=== PATIENT | female | born 1960 | race Two or more races ===

== ENCOUNTER → 2017-01-08 | Outpatient (CLI) | payer OTHER ==
[~2017-01-08] MED LIST: GABA100C14; HORMONE MED; IBUP-1542 PO; OXYC-117 PO; PAXIL
== END | disposition home or self-care (01) ==
LOC: HKI 15:02
PROVIDERS: ATTEND Orthopaedic Surgery
DX: M25.561 Pain in right knee (principal); M17.11 Unilateral primary osteoarthritis, right knee
CPT/HCPCS: G0463

== ENCOUNTER → 2017-09-09 | Outpatient (CLI) | END | disposition home or self-care (01) ==

== ENCOUNTER → 2017-09-21 | Outpatient (CLI) | END | disposition home or self-care (01) ==

== ENCOUNTER → 2017-10-12 | Outpatient (CLI) | END | disposition home or self-care (01) ==

== ENCOUNTER → 2017-11-08 | Outpatient (CLI) | END | disposition home or self-care (01) ==

== ENCOUNTER → 2017-12-02 | Outpatient (CLI) | END | disposition home or self-care (01) ==

== ENCOUNTER → 2018-04-07 | Outpatient (CLI) | END | disposition home or self-care (01) ==

== ENCOUNTER → 2018-04-19 | Outpatient (CLI) | END | disposition home or self-care (01) ==

== ENCOUNTER → 2018-05-10 | Outpatient (CLI) | END | disposition home or self-care (01) ==

== ENCOUNTER 2018-09-21 05:19 | Inpatient (IN) | payer OTHER ==
[2018-09-21] VITALS (21 sets, daily range): BP systolic 103–141; BP diastolic 51–73; PULSE 70–86; RESP 15–22; Ht 165.1 cm; Wt 79.6 kg
[~2018-09-21] VITALS: Ht 165.1 cm; Wt 79.6 kg
[2018-09-21] MEDS ORDERED: KNEE PAIN COCKTAIL (CEFUROXIME) INJ SCH ×7 (06:00)
[2018-09-21] MEDS ORDERED: TRANEXAMIC ACID 1,000 MG in NS 100 ML PRE-OP X1 IVPB ONE (06:00)
[2018-09-21] MEDS ORDERED: CEFAZOLIN 2 GM/50 ML (PMX) 50 ML IVPB ONE (06:00)
[2018-09-21] MEDS ORDERED: TRANEXAMIC ACID 1,000 MG in NS 100 ML INTRA-OP X1 IVPB ONE (06:00)
[2018-09-21] MEDS ORDERED: LACTATED RINGER'S 1,000 ML IV* SCH (06:00)
--- NOTE | 2018-09-21 06:37 | HPN ---
Date/Time of Note Date/Time of Note DATE: 09/21/18 TIME: 06:37 Interval H&P Admission Note Pt. seen H&P reviewed: No system changes SIOBHAN STOYR MD Sep 21, 2018 06:37
[2018-09-21] MEDS ORDERED: POLYMYXIN B 500000 UNIT INJ ONE (06:55)
[2018-09-21] MEDS ORDERED: BACITRACIN 50000 UNITS INJ ONE (06:57)
[2018-09-21] MEDS ORDERED: LIDOCAINE 2% (SDV) 5 ML INJ ONE (07:00)
[2018-09-21] MEDS ORDERED: ONDANSETRON 4 MG INJ ONE (07:00)
[2018-09-21] MEDS ORDERED: GABA-526 PO ×2 (07:11)
[2018-09-21] MEDS ORDERED: DULO30CA47 PO (07:12)
[2018-09-21] MEDS ORDERED: AMIT50TA3 PO (07:12)
[2018-09-21] MEDS ORDERED: DULO60CA59 PO (07:12)
--- NOTE | 2018-09-21 07:12 | PREAC ---
Date/Time of Note Date/Time of Note DATE: 09/21/18 TIME: 07:10 Anesthesia Eval and Record Evaluation Time Pre-Procedure Interview DATE: 09/21/18 TIME: 07:10 Age 58 Sex female NPO: 8 hrs Preoperative diagnosis R knee arthritis Planned procedure R TKA Past Medical History Past Medical History: Includes Cardio: HTN Pulm: Smoking Hx (20 pack year hx) Musculoskeletal: Osteoarthritis Psych: Depression, Anxiety Surgery & Anesthesia Issues No known issue Meds Anticoagulation: No Beta Sapphire within 24 hr: No Reason Beta Sapphire not given: Pt. not on B-Sapphire Reported Medications [Paxil] No Conflict Check 06/07/12 Oxycodone Hcl/Acetaminophen (Oxycodone-Apap 5-325 Mg Tab) 1 Tab Tablet, 1 TAB PO Q4 PRN 06/07/12 Ibuprofen* (Ibuprofen*) 600 Mg Tablet, 600 MG PO Q6 PRN 06/07/12 [Hormone Med.] No Conflict Check 12/30/10 Gabapentin* (Gabapentin*) 100 Mg Capsule 12/30/10 Current Medications Ropivacaine/ Morphine Sulfate/ Clonidine/ Epinephrine/ Ketorolac Tromethamine/ Cefuroxime Sodium/ Sodium Chloride INTRA-OP INJ ; Start 09/21/18 at 06:00; Stop 09/21/18 at 10:30 Lactated Ringer's 1,000 ml @ 125 mls/hr Q8H IV* Last administered on 09/21/18at 06:18; Admin Dose 125 MLS/HR; Start 09/21/18 at 06:00; Stop 09/21/18 at 13:59 Meds reviewed: Yes Allergies Coded Allergies: No Known Allergy (Verified , 09/21/18) Allergies Reviewed: Yes Labs/Studies Labs Reviewed: Reviewed by anesthesiologist test: Negative Studies: ECG, CXR Pre-procedure Exam Last vitals Vital Signs Date Temp Pulse Resp B/P (MAP) Pulse Ox O2 O2 Flow FiO2 Time Delivery Rate 09/21/18 97.3 70 18 116/57 100 Room Air 06:37 (76) Airway: Adequate mouth opening, Adequate thyromental dist Mallampati: Mallampati III Teeth: Normal Lung: Normal Heart: Normal ASA Physical Status ASA physical status: 2 Emergency: None Planned Anesthetic General/MAC: LMA Planned Pain Management Single shot nerve block, Parenteral pain med, Other neuraxial med, Local by surgeon Pre-operative Attestations Prior to commencing anesthesia and surgery, the patient was re-evaluated, there was verification of: *The patient's identity *The results of appropriate recent lab work and preoperative vital signs *The above evaluation not changing prior to induction *Anesthetic plan, risk benefits, alternative and complications discussed with patient/family; questions answered; patient/family understands, accepts and wishes to proceed. ANNITA DUENAS MD Sep 21, 2018 07:12
--- NOTE | 2018-09-21 07:18 | PDOCDIS ---
Discharge Instructions DIAGNOSIS Discharge Diagnosis Status post right total knee arthroplasty CONDITION [id number] Patient Condition: [id number] Good HOME CARE INSTRUCTIONS: Zddet2Gl Diet Instructions: [id number] Regular ACTIVITY: [id number] Activity Restrictions: [id number] Slowly Increase Activity Rest between Activity Avoid heavy lifting No Sexual Activity Do not Drive Do not operate Machinery Do not operate Power Tool Avoid Heavy Housework Keep Limb Elevated (2-3 pillows underneath the right foot to the leg remains in full extension) Weight Bearing (Weight-bear as tolerated using front-wheeled walker) [id number] Bathing Restrictions: [id number] Shower (Prineo dressing to remain on until seen postoperatively. Okay to shower with this dressing.) FOLLOW UP/APPOINTMENTS Follow-up Plan Follow-up at postoperative appointment provided to you at your preoperative exam STELLA CLINE PA-C Sep 21, 2018 07:18
[2018-09-21] MEDS ORDERED: FENTAnyl 50 MCG/ML VIAL ONE ×2 (07:23→08:19)
[2018-09-21] MEDS ORDERED: PROPOFOL 20 ML ONE (07:23)
[2018-09-21] MEDS ORDERED: MIDAZOLAM 1 MG/ML 2 ML INJ ONE (07:23)
[2018-09-21] MEDS ORDERED: METOCLOPRAMIDE 10 MG INJ ONE (07:26)
[2018-09-21] MEDS ORDERED: morphine SULFATE/PF (10 MG/10 ML) INJ ONE (07:26)
[2018-09-21] MEDS ORDERED: ROPIVACAINE 0.5 % 30 ML VIAL ONE (07:27)
[2018-09-21] MEDS ORDERED: ONDANSETRON 4 MG INJ IV PRN (07:30)
[2018-09-21] MEDS ORDERED: MAGNESIUM HYDROXIDE 30ML CUP PO PRN (07:30)
[2018-09-21] MEDS ORDERED: DOCUSATE SODIUM 100 MG CAP PO ONE (07:30)
[2018-09-21] MEDS ORDERED: MEPERIDINE 25 MG INJ IV PRN (07:30)
[2018-09-21] MEDS ORDERED: HALOPERIDOL 5 MG INJ IV PRN (07:30)
[2018-09-21] MEDS ORDERED: LORAZEPAM 2 MG INJ IV PRN (07:30)
[2018-09-21] MEDS ORDERED: NACL 0.9% 3 ML SYG IV SCH (07:30)
[2018-09-21] MEDS ORDERED: DIPHENHYDRAMINE 50 MG INJ IV PRN ×2 (07:30)
[2018-09-21] MEDS ORDERED: LABETALOL HCL 20MG INJ IV PRN (07:30)
[2018-09-21] MEDS ORDERED: FENTAnyl 50 MCG/ML VIAL IV PRN ×2 (07:30)
[2018-09-21] MEDS ORDERED: ASPIRIN 81 MG TAB PO ONE (07:30)
[2018-09-21] MEDS ORDERED: NALOXONE (0.4 MG/ML) INJ IV PRN (07:30)
[2018-09-21] MEDS ORDERED: BETHANECHOL 25 MG TAB PO PRN (07:30)
[2018-09-21] MEDS ORDERED: LEVALBUTEROL (NEB) 1.25 MG/0.5 ML AMP HHN PRN (07:30)
[2018-09-21] MEDS ORDERED: hydrALAzine 20 MG INJ IV PRN (07:30)
[2018-09-21] MEDS ORDERED: IPRATROPIUM (NEB) 0.5 MG/2.5 ML AMP HHN PRN (07:30)
[2018-09-21] MEDS ORDERED: MIDAZOLAM 1 MG/ML 2 ML INJ IV PRN (07:30)
[2018-09-21] MEDS ORDERED: NA PHOSPHATE/BIPHOS 133 ML ENEMA PR PRN (07:30)
[2018-09-21] MEDS ORDERED: HYDROmorphONE 1 MG/5 ML IV SYRINGE IV PRN ×2 (07:30)
[2018-09-21] MEDS ORDERED: BISACODYL 10 MG SUPP PR PRN (07:30)
[2018-09-21] MEDS ORDERED: oxyCODONE 5 MG TAB PO PRN (07:30)
[2018-09-21] MEDS ORDERED: SENNA/DOCUSATE NA (8.6MG/50MG) TAB PO PRN (07:30)
[2018-09-21] MEDS ORDERED: EPINEPHrine 1 MG INJ ONE (07:32)
[2018-09-21] MEDS ORDERED: HYDROmorphONE 2 MG/ML SYG ONE (08:17)
[2018-09-21] MEDS ORDERED: GABAPENTIN 300 MG CAP PO SCH (09:00)
[2018-09-21] MEDS ORDERED: DEXAMETHASONE 4 MG/ML 5 ML INJ ONE (09:09)
--- NOTE | 2018-09-21 09:40 | SIPON ---
Date/Time of Note Date/Time of Note DATE: 09/21/18 TIME: 09:37 Operative Report Preoperative Diagnosis Right Knee Osteoarthritis Postoperative Diagnosis Same Operation/Procedure Performed Right Total Knee Arthroplasty Surgeon Josy Story MD phlebotomy lab assistant Gregory Hunt Second assist: STELLA CLINE PA-C Anesthesia: general Estimated blood loss: 250 - 300 ml's Transfusion Required none Specimen bone Grafts/Implants none Complications none JOSY STORY MD Sep 21, 2018 09:40
[2018-09-21] MEDS: HYDROmorphONE 1 MG/5 ML IV SYRINGE IV PRN ×2 (09:51→09:57)
--- NOTE | 2018-09-21 09:53 | OPR ---
Date/Time of Note Date/Time of Note DATE: 09/21/18 TIME: 09:40 Operative Report Free Text/Dictation DATE OF OPERATION: September 21, 2018 SURGEON: Siobhan Story MD APARTMENT MAINTENANCE SUPERVISOR: Gregory GARCIA APARTMENT MAINTENANCE SUPERVISOR: Aldair Hinkle PREOPERATIVE DIAGNOSIS: Right knee osteoarthritis. POSTOPERATIVE DIAGNOSIS: Right knee osteoarthritis. PROCEDURES PERFORMED: Right total knee arthroplasty, CPT code 17032. ANESTHESIOLOGIST: Dr. Tinoco ANESTHESIA: General ESTIMATED BLOOD LOSS: 300 mL. COMPLICATIONS: None. SPECIMENS: Resected bone. DISPOSITION: PACU in stable condition. TOURNIQUET TIME: 43 minutes at 250 mmHg. IMPLANT USED: Fragoso [employer] Nephew size 3 Li tibial baseplate, size 4 standard posterior stabilized Oxinium femur, size 9 high flexion polyethylene, size 35 mm patella. INDICATION FOR PROCEDURE: This is an 58-year-old female with end-stage osteoarthritis of the right knee who had failed nonoperative management. Risks, benefits, alternatives of surgical intervention were discussed with the patient and informed consent was obtained. The risks of surgery include but are not limited to infection, deep venous thrombosis, pulmonary embolism, damage to nerves and blood vessels, numbness around incision site, stiffness of knee, need for total knee manipulation under anesthesia, need for blood transfuion, heart attack, stroke, risks associated with anesthesia, implant loosening, wear of prosthesis, need for revision surgery, and . DESCRIPTION OF PROCEDURE: The patient was met in the preoperative suite. The correct operative site was confirmed and marked. The patient was then brought into operating room. After induction of anesthesia, the patient was placed in the supine position on the operating room table. A tourniquet was applied to right upper thigh. The right lower extremity was prepped and draped in the usual sterile fashion. Before starting, a timeout was taken to identify the correct operative site and confirm preoperative antibiotics consisting of 1 g of IV Ancef, along with 1 g of tranexamic acid were administered. At this point, the right leg was elevated and exsanguinated with an Esmarch and tourniquet was then insufflated for the above noted time. A midline incision was made and median parapatellar arthrotomy was then completed. The lateral patellar reti nacular ligaments were released. A sleeve of tissue was released from the medial proximal tibia. The cruciate ligaments and the menisci were then excised. At this point, the custom distal femur cutting block was then pinned and 9.5 mm was resected from the distal femur. The 4-in-1 cutting block, size 4 was then placed. An rosie wing was used to confirm that notching of the anterior cortex of the femur would not occur. The anterior and posterior condylar cuts were completed followed by the anterior and posterior chamfer cuts. The osteophytes were then removed with a rongeur. At this point, the tibia was subluxed anteriorly. Appropriate retractors were placed. The custom tibial cutting block was then pinned. The drop was used to ensure the correct alignment. Approximately 6 mm was resected off the lateral tibial plateau and 9 mm off the medial tibial plateau. Osteophytes were then removed. At this point, the flexion extension gaps were checked with a 9 mm gap fish checker and noted to be equal. Next, trial 4 standard femur was then pinned and the box cut was then completed. The tibia was then subluxed anteriorly and measured to size 3. The tibial tray was then pinned and a keel was then punched. The trial components were placed with a 9 mm polyethylene and noted to have full extension and greater than 120 degrees of flexion. The patella was then subluxed laterally and sized to 21 mm. Approximately, 7 mm was resected leaving 14 mm of bone. The patellar was sized to 35 mm. The button was placed and noted to have excellent patellar tracking. The trial components were removed. All bony surfaces were pulse lavaged and dried. The appropriate size components were then cemented and the knee was held in extension with a 9 mm trial polyethylene until the cement cured. Once the cement had cured, the trial polyethylene was removed and the appropriate size polyethylene was then placed. The tranexamic acid was redosed. The cocktail was then injected. The extensor mechanism was closed using #1 Stratafix and the subcutaneous tissue with 2-0 Vicryl and the skin with 4-0 Monocryl. Steri-Strips were applied along with a sterile dressing. There were no complications. The patient was transferred to PACU in stable condition. POSTOPERATIVE CARE: The patient will be weightbearing as tolerated. The patient will work with physical therapy, and will receive two additional doses of IV antibiotics along with aspirin 81 mg p.o. b.i.d. for 6 weeks. Upon discharge, patient will follow up in my office within 2 weeks postoperatively. SIOBHAN STORY MD 9, 2019 09:52
--- NOTE | 2018-09-21 09:54 | PAC ---
Date/Time of Note Date/Time of Note DATE: 09/21/18 TIME: 09:54 Post-Anesthesia Notes Post-Anesthesia Note Last documented vital signs Vital Signs Date Temp Pulse Resp B/P (MAP) Pulse Ox O2 O2 Flow FiO2 Time Delivery Rate 09/21/18 97.3 70 18 116/57 100 Room Air 06:37 (76) Activity: WNL Respiratory function: WNL Cardiovascular function: WNL Mental status: Baseline Pain reasonably controlled: Yes Hydration appropriate: Yes Nausea/Vomiting absent: Yes ANNITA DUENAS MD Sep 21, 2018 09:54
[2018-09-21] MEDS: CEFAZOLIN 2 GM/50 ML (PMX) 50 ML IVPB SCH ×3 (11:05→22:56)
[2018-09-21] MEDS: SOD CHLORIDE 0.9% 1,000 ML IV SCH ×3 (11:13→22:56)
--- NOTE | 2018-09-21 11:17 | CONS ---
Date/Time of Note Date/Time of Note DATE: 09/21/18 TIME: 11:17 Assessment/Plan Assessment/Plan Hospital Course 58-year-old female with comorbidities including chronic back pain, right knee osteoarthritis, depression, and nicotine use who underwent a right total knee arthroplasty for right knee osteoarthritis. The patient is being admitted to inpatient setting for further treatment and evaluation. 1. Right knee osteoarthritis. -Status post right total knee arthroplasty on 09/21/2018. -Weight bearing of the right lower extremity as per orthopedic surgery. -Continue pain control. -Anti-coagulation as per orthopedic surgery. -Physical therapy and occupational therapy as per orthopedic surgeon. 2. Nicotine use. -Start the patient on nicotine patch. 3. Depression. -Continue mood stabilizers. 4. Chronic pain. -Continue gabapentin. Diet: Regular diet. CODE STATUS: Full code. Anticoagulation: As per orthopedic surgery. Additional diagnostic and therapeutic orders will be added as clinically indicated. We will continue to follow the patient along with you Thank you Dr. Ross for allowing us to participate in this patient's care. The patient was seen in collaboration with Dr. Lundberg. Consultation Date/Type/Reason Admit Date/Time Sep 21, 2018 at 05:19 Date of Consultation: Sep 21, 2018 Type of Consult Medical. Reason for Consultation Medical management. Requesting Provider: SIOBHAN STORY MD Hx of Present Illness This is a 58-year-old female with comorbidities including chronic low back pain, right knee osteoarthritis, nicotine use, and depression who was brought to in electively for a right total knee arthroplasty for right knee osteoarthritis. The patient underwent the surgery well. The patient is being admitted to inpatient setting for further monitoring. Hospitalist consult was obtained for medical management. Constitutional: no complaints Eyes: no complaints ENT: no complaints Respiratory: no complaints Cardiovascular: no complaints Gastrointestinal: no complaints Genitourinary: no complaints Musculoskeletal: back pain, bone/joint pain Skin: no complaints Neurologic: no complaints Endocrine: no complaints Lymphatic: no complaints Psychological: depression Immunologic: no complaints Past Medical History 1. Chronic pain. 2. Depression. Medications Current Medications Lactated Ringer's 1,000 ml @ 125 mls/hr Q8H IV* Last administered on 09/21/18at 06:18; Admin Dose 125 MLS/HR; Start 09/21/18 at 06:00; Stop 09/21/18 at 13:59 Hydromorphone HCl (Dilaudid) 0.2 mg PACU PRN IV MILD PAIN LEVEL 1-3 Last administered on 09/21/18at 10:25; Admin Dose 0.2 MG; Start 09/21/18 at 07:30; Stop 09/21/18 at 18:00 Hydromorphone HCl (Dilaudid) 0.4 mg PACU PRN IV MODERATE PAIN LEVEL 4-6 Last administered on 09/21/18at 09:57; Admin Dose 0.4 MG; Start 09/21/18 at 07:30; Stop 09/21/18 at 18:00 Hydromorphone HCl (Dilaudid) 0.6 mg PACU PRN IV SEVERE PAIN LEVEL 7-10; Start 09/21/18 at 07:30; Stop 09/21/18 at 18:00 Fentanyl (Sublimaze) 25 mcg PACU ORDER PRN IV MILD PAIN LEVEL 1-3 Last administered on 09/21/18at 10:32; Admin Dose 25 MCG; Start 09/21/18 at 07:30; Stop 09/21/18 at 18:00 Fentanyl (Sublimaze) 50 mcg PACU ORDER PRN IV MODERATE PAIN LEVEL 4-6; Start 09/21/18 at 07:30; Stop 09/21/18 at 18:00 Ondansetron HCl (Zofran Inj) 4 mg PACU ORDER PRN IV NAUSEA AND/OR VOMITING Last administered on 09/21/18at 09:56; Admin Dose 4 MG; Start 09/21/18 at 07:30; Stop 09/21/18 at 18:00 Haloperidol (Haldol) 1 mg PACU ORDER PRN IV NAUSEA AND/OR VOMITING; Start 09/21/18 at 07:30; Stop 09/21/18 at 18:00 Labetalol HCl (Labetalol) 5 mg PACU ORDER PRN IV ELEVATED BLOOD PRESSURE; Start 09/21/18 at 07:30; Stop 09/21/18 at 18:00 Hydralazine HCl (Apresoline) 5 mg PACU ORDER PRN IV ELEVATED BLOOD PRESSURE; Start 09/21/18 at 07:30; Stop 09/21/18 at 18:00 Levalbuterol (Xopenex Neb) 1.25 mg PACU ORDER PRN HHN WHEEZING; Start 09/21/18 at 07:30; Stop 09/21/18 at 18:00 Ipratropium [place] (Atrovent 0.02% (Neb)) 0.5 mg PACU ORDER PRN HHN WHEEZING; Start 09/21/18 at 07:30; Stop 09/21/18 at 18:00 Meperidine HCl (Demerol) 25 mg PACU ORDER PRN IV POST OPERATIVE SHIVERING Last administered on 09/21/18at 09:51; Admin Dose 25 MG; Start 09/21/18 at 07:30; Stop 09/21/18 at 18:00 Diphenhydramine HCl (Benadryl) 25 mg PACU ORDER PRN IV PRURITUS Last administered on 09/21/18at 10:25; Admin Dose 25 MG; Start 09/21/18 at 07:30; Stop 09/21/18 at 18:00 Lorazepam (Ativan) 1 mg PACU ORDER PRN IV ANXIETY; Start 09/21/18 at 07:30; Stop 09/21/18 at 18:00 Midazolam HCl (Versed) 0.5 mg PACU ORDER PRN IV ANXIETY; Start 09/21/18 at 07:30; Stop 09/21/18 at 18:00 Sodium Chloride 1,000 ml @ 80 mls/hr [id number] IV ; Start 09/21/18 at 07:18 IV Flush (NS 3 ml) 3 ml PER PROTOCOL IV ; Start 09/21/18 at 07:30 Oxycodone HCl (Roxicodone) 15 mg Q4H PRN PO PAIN; Start 09/21/18 at 07:30 Oxycodone HCl (Roxicodone) 10 mg Q4H PRN PO PAIN; Start 09/21/18 at 07:30 Oxycodone HCl (Roxicodone) 5 mg Q4H PRN PO PAIN; Start 09/21/18 at 07:30 Ondansetron HCl (Zofran Inj) 4 mg Q4H PRN IV NAUSEA AND/OR VOMITING; Start 09/22/18 at 07:30 Cefazolin Sodium/ Dextrose 50 ml @ 100 mls/hr Q8H IVPB ; Start 09/21/18 at 07:30; Stop 09/21/18 at 23:59 Celecoxib (Celebrex) 100 mg BID PO ; Start 09/22/18 at 09:00 Gabapentin (Neurontin) 300 mg TID PO Last administered on 09/21/18at 10:47; Admin Dose 300 MG; Start 09/21/18 at 09:00 Pantoprazole (Protonix Tab) 40 mg DAILY@06 PO ; Start 09/23/18 at 06:00 Docusate Sodium (Colace) 200 mg BID PO ; Start 09/22/18 at 09:00; Stop 09/25/18 at 08:59 Simethicone (Mylicon) 80 mg TID PRN PO DISTENSION/GAS/BLOATING; Start 09/21/18 at 07:30 Senna/Docusate Sodium (Senokot-S) 2 tab BID PRN PO CONSTIPATION; Start 09/21/18 at 07:30 Magnesium Hydroxide (Milk Of Mag) 30 ml HS PRN PO CONSTIPATION; Start 09/21/18 at 07:30 Bisacodyl (Dulcolax Supp) 10 mg DAILY PRN NE CONSTIPATION; Start 09/21/18 at 07:30 Sodium Biphosphate/ Sodium Phosphate (Fleet Enema) 133 ml DAILY PRN NE CONSTIPATION; Start 09/21/18 at 07:30 Diphenhydramine HCl (Benadryl) 25 mg Q4H PRN IV ITCHING; Start 09/21/18 at 07:30 Naloxone HCl (Narcan) 0.2 mg Q2M PRN IV DECREASED REPIRATORY RATE; Start 09/21/18 at 07:30 Bethanechol Chloride (Urecholine) 25 mg URINARY CATH D/C PRN PO UNABLE TO VOID; Start 09/21/18 at 07:30 Aspirin (Halfprin) 81 mg BID PO ; Start 09/22/18 at 09:00 Allergies: Coded Allergies: No Known Allergy (Verified , 09/21/18) Past Surgical History 1. Cholecystectomy. 2. Back surgery. 3. Vaginal surgery. Social History The patient lives at home with family. Alcohol Use: none Smoking Status: Current every day smoker Drug Use: none Exam/Review of Systems Vital Signs Vitals Vital Signs Date Temp Pulse Resp B/P (MAP) Pulse Ox O2 O2 Flow FiO2 Time Delivery Rate 09/21/18 75 21 128/67 100 Nasal 1.0 10:56 (87) Cannula 09/21/18 99.1 09:54 Exam General: Adequately build 58 year-old female lying in bed in no apparent distress. HEENT: Normocephalic, atraumatic. Eyes: Anicteric sclerae, conjunctivae clear. ENT: Nasal septum midline, oral mucosa moist. Neck supple, no JVD noticed. Respiratory: Bilaterally clear breath sounds. No use of accessory muscles of respiration. No adventitious breath sounds. Cardiovascular: S1, S2 heard. Regular rate and rhythm. Abdomen: Soft, nontender, and nondistended. Bowel sounds positive in all 4 quadrants. Genitourinary: Deferred. Extremities: No cyanosis, no clubbing, no edema. Right knee surgical dressing. Neurologic: Cranial nerves II through XII grossly intact. The patient is awake, alert, and oriented. Skin: Normal skin turgor. No skin rashes. LYNSEY CABRALES NP Sep 21, 2018 11:17
[2018-09-21] MEDS: oxyCODONE 5 MG TAB PO PRN ×3 (13:49→21:35)
[2018-09-21] MEDS: NICOTINE (7 MG/24 HR) PATCH TRANSDERM SCH (16:07)
[2018-09-21] MEDS ORDERED: HYDROmorphONE 1 MG/ML SYG IV ONE (18:30)
[2018-09-21] MEDS: GABAPENTIN 400 MG CAP PO SCH (20:05)
[2018-09-21] MEDS: DULOXETINE 30 MG CAP DR PO SCH (20:05)
[2018-09-21] MEDS: AMITRIPTYLINE 50 MG TAB PO SCH (20:05)
[2018-09-21] MEDS ORDERED: HYDROmorphONE 0.5 MG/0.5 ML SYG IV PRN (22:00)
[2018-09-21] MEDS: HYDROmorphONE 1 MG/ML SYG IV PRN (23:37)
[2018-09-22] VITALS: BP 116/55; PULSE 82; RESP 18
[2018-09-22] MEDS: oxyCODONE 5 MG TAB PO PRN ×6 (01:19→23:28)
[2018-09-22] MEDS ORDERED: HYDROmorphONE 0.5 MG/0.5 ML SYG IV PRN (04:00)
[2018-09-22] MEDS: HYDROmorphONE 1 MG/ML SYG IV PRN ×2 (05:36→14:19)
[2018-09-22] MEDS ORDERED: ONDANSETRON 4 MG INJ IV PRN (07:30)
[2018-09-22 07:52] VITALS: BP 133/62; PULSE 84; RESP 18
[2018-09-22] MEDS ORDERED: HYDROmorphONE 1 MG/ML SYG IV STA (08:24)
[2018-09-22] MEDS ORDERED: HYDROmorphONE 2 MG/ML SYG IV PRN (08:30)
--- NOTE | 2018-09-22 08:37 | PN ---
Date/Time of Note Date/Time of Note DATE: 09/22/18 TIME: 08:35 Assessment/Plan VTE Prophylaxis VTE Prophylaxis Intervention: ambulation, SCD's, other (Aspirin 81 mg) Lines/Catheters IV Catheter Type (from Nrsg): Peripheral IV Assessment/Plan Assessment/Plan -Pain Meds as needed. Dilaudid 1 mg IV every 4 okay today. Discussed directly with pharmacist as well. -Dressing is clean and intact. -OOB with PT -ASA/SCDs for DVT Prophylaxis -Continue monitoring with Internal Medicine -Patient Stable Subjective 24 Hr Interval Summary 58-year-old female postop day 1 status post right total knee arthroplasty. Patient has been experiencing severe pain status post surgery since yesterday evening. Oxycodone 15 mg not effective. Was given 1 mg Dilaudid which was mildly effective. The patient in acute distress at the current time secondary to severe pain to the operative knee. Denies any chest pain/tightness complai nts. Patient's only complaint is severe pain to the knee. Pain Control: severe Exam/Review of Systems Vital Signs Vitals Vital Signs Date Temp Pulse Resp B/P (MAP) Pulse Ox O2 O2 Flow FiO2 Time Delivery Rate 09/22/18 99.0 84 18 133/62 97 Nasal 2.0 07:52 (85) Cannula Intake and Output 09/21/18 09/21/18 09/22/18 1515:00 23:00 07:00 IntakeIntake Total 1720 ml 870 ml 530 ml OutputOutput Total 450 ml BalanceBalance 1270 ml 870 ml 530 ml Exam Free Text/Dictation -No complications with dressing intact. -4/5 Tibialis Anterior, EHL Gastrocnemius/Soleus and Peroneals -Normal Sensation -Palpable DP/PT, Capillary Refill <2 secs -No Distal Edema -Negative Edyta Sign/No calf pain -Toes Freely Movable Constitutional: alert, oriented, well developed Results Result Diagram: 09/22/18 04309/22/18 043 STELLA CLINE PA-C Sep 22, 2018 08:37
--- NOTE | 2018-09-22 08:53 | CONS ---
Date/Time of Note Date/Time of Note DATE: 09/22/18 TIME: 08:51 Assessment/Plan Assessment/Plan Hospital Course SUBJECTIVE: Patient continues to complain of significant right knee pain. OBJECTIVE: Physical Exam General: Adequately build 58 year-old female lying in bed in no apparent distress. HEENT: Normocephalic, atraumatic. Eyes: Anicteric sclerae, conjunctivae clear. ENT: Nasal septum midline, oral mucosa moist. Neck supple, no JVD noticed. Respiratory: Bilaterally clear breath sounds. No use of accessory muscles of respiration. No adventitious breath sounds. Cardiovascular: S1, S2 heard. Regular rate and rhythm. Abdomen: Soft, nontender, and nondistended. Bowel sounds positive in all 4 quadrants. Genitourinary: Deferred. Extremities: No cyanosis, no clubbing, no edema. Right knee surgical dressing. Neurologic: Cranial nerves II through XII grossly intact. The patient is awake, alert, and oriented. Skin: Normal skin turgor. No skin rashes. Labs & Vitals per chart ASSESSMENT & PLAN 58-year-old female with comorbidities including chronic back pain, right knee osteoarthritis, depression, and nicotine use who underwent a right total knee arthroplasty for right knee osteoarthritis. The patient was admitted to inpatient setting for further treatment and evaluation. 1. Right knee osteoarthritis. -Status post right total knee arthroplasty on 09/21/2018. -Weight bearing of the right lower extremity as per orthopedic surgery. -Continue pain control. -Anti-coagulation as per orthopedic surgery. -Physical therapy and occupational therapy as per orthopedic surgeon. 2. Nicotine use. -Continue the patient on nicotine patch. 3. Depression. -Continue mood stabilizers. 4. Chronic pain. -Continue gabapentin. Diet: Regular diet. CODE STATUS: Full code. Anticoagulation: As per orthopedic surgery. Additional diagnostic and therapeutic orders will be added as clinically indicated. We will continue to follow the patient along with you Thank you Dr. Ross for allowing us to participate in this patient's care. The patient was seen in collaboration with Dr. Lundberg. Result Diagram: 09/22/18 0431 09/22/18 0431 Results 24hrs Laboratory Tests Test 09/22/18 04:31 09/22/18 07:12 White Blood Count 8.9 Red Blood Count 4.04 L Hemoglobin 11.3 L Hematocrit 34.4 L Mean Corpuscular Volume 85.1 Mean Corpuscular Hemoglobin 28.0 L Mean Corpuscular Hemoglobin Concent 32.8 Red Cell Distribution Width 13.5 Platelet Count 188 Mean Platelet Volume 10.6 H Immature Granulocytes % 0.300 Neutrophils % 62.8 Lymphocytes % 23.7 Monocytes % 11.8 H Eosinophils % 1.1 Basophils % 0.3 Nucleated Red Blood Cells % 0.0 Immature Granulocytes # 0.030 Neutrophils # 5.6 Lymphocytes # 2.1 Monocytes # 1.1 H Eosinophils # 0.1 Basophils # 0.0 Nucleated Red Blood Cells # 0.0 Sodium Level 139 Potassium Level 3.9 Chloride Level 105 Carbon Dioxide Level 28 Anion Gap 6 Blood Urea Nitrogen 8 Creatinine 0.63 Est Glomerular Filtrat Rate mL/min > 60 Glucose Level 106 Calcium Level 8.2 L Lab Scanned Report REFERENCE LAB Consultation Date/Type/Reason Admit Date/Time Sep 21, 2018 at 05:19 Initial Consult Date 09/21/18 Type of Consult Medical. Reason for Consultation Medical management. Requesting Provider: SIOBHAN STORY MD Exam/Review of Systems Vital Signs Vitals Vital Signs Date Temp Pulse Resp B/P (MAP) Pulse Ox O2 O2 Flow FiO2 Time Delivery Rate 09/22/18 99.0 84 18 133/62 97 Nasal 2.0 07:52 (85) Cannula Intake and Output 09/21/18 09/21/18 09/22/18 1515:00 23:00 07:00 IntakeIntake Total 1720 ml 870 ml 530 ml OutputOutput Total 450 ml BalanceBalance 1270 ml 870 ml 530 ml Medications Medications Current Medications Sodium Chloride 1,000 ml @ 80 mls/hr [id number] IV Last administered on 09/21/18at 22:56; Admin Dose 80 MLS/HR; Start 09/21/18 at 07:18 IV Flush (NS 3 ml) 3 ml PER PROTOCOL IV ; Start 09/21/18 at 07:30 Oxycodone HCl (Roxicodone) 15 mg Q4H PRN PO PAIN Last administered on 09/22/18at 07:27; Admin Dose 15 MG; Start 09/21/18 at 07:30 Oxycodone HCl (Roxicodone) 10 mg Q4H PRN PO PAIN Last administered on 09/21/18at 13:49; Admin Dose 10 MG; Start 09/21/18 at 07:30 Oxycodone HCl (Roxicodone) 5 mg Q4H PRN PO PAIN; Start 09/21/18 at 07:30 Ondansetron HCl (Zofran Inj) 4 mg Q4H PRN IV NAUSEA AND/OR VOMITING; Start 09/22/18 at 07:30 Celecoxib (Celebrex) 100 mg BID PO ; Start 09/22/18 at 09:00 Pantoprazole (Protonix Tab) 40 mg DAILY@06 PO ; Start 09/23/18 at 06:00 Docusate Sodium (Colace) 200 mg BID PO ; Start 09/22/18 at 09:00; Stop 09/25/18 at 08:59 Simethicone (Mylicon) 80 mg TID PRN PO DISTENSION/GAS/BLOATING; Start 09/21/18 at 07:30 Senna/Docusate Sodium (Senokot-S) 2 tab BID PRN PO CONSTIPATION; Start 09/21/18 at 07:30 Magnesium Hydroxide (Milk Of Mag) 30 ml HS PRN PO CONSTIPATION; Start 09/21/18 at 07:30 Bisacodyl (Dulcolax Supp) 10 mg DAILY PRN [place] CONSTIPATION; Start 09/21/18 at 07:30 Sodium Biphosphate/ Sodium Phosphate (Fleet Enema) 133 ml DAILY PRN [place] CONS TIPATION; Start 09/21/18 at 07:30 Diphenhydramine HCl (Benadryl) 25 mg Q4H PRN IV ITCHING Last administered on 09/22/18at 02:23; Admin Dose 25 MG; Start 09/21/18 at 07:30 Naloxone HCl (Narcan) 0.2 mg Q2M PRN IV DECREASED REPIRATORY RATE; Start 09/21/18 at 07:30 Bethanechol Chloride (Urecholine) 25 mg URINARY CATH D/C PRN PO UNABLE TO VOID; Start 09/21/18 at 07:30 Aspirin (Halfprin) 81 mg BID PO ; Start 09/22/18 at 09:00 Amitriptyline HCl (Elavil) 50 mg QHS PO Last administered on 09/21/18at 20:05; Ad min Dose 50 MG; Start 09/21/18 at 21:00 Duloxetine HCl (Cymbalta) 30 mg QHS PO Last administered on 09/21/18at 20:05; Admin Dose 30 MG; Start 09/21/18 at 21:00 Duloxetine HCl (Cymbalta) 60 mg QAM PO ; Start 09/22/18 at 09:00 Gabapentin (Neurontin) 1,200 mg QPM PO Last administered on 09/21/18at 20:05; A dmin Dose 1,200 MG; Start 09/21/18 at 21:00 Gabapentin (Neurontin) 600 mg QAM PO ; Start 09/22/18 at 09:00 Nicotine (Nicoderm 7 Mg/ 24 Hr) 1 patch DAILY TRANSDERM Last administered on 09/21/18at 16:07; Admin Dose 1 PATCH; Start 09/21/18 at 15:00 Hydromorphone HCl (Dilaudid) 1 mg Q6H PRN IV BREAKTHROUGH PAIN; Start 09/22/18 at 08:30 LYNSEY CABRALES NP Sep 22, 2018 08:53
[2018-09-22] MEDS: ASPIRIN (EC) 81 MG TAB PO SCH ×2 (09:05→20:38)
[2018-09-22] MEDS: CELECOXIB 100 MG CAP PO SCH ×2 (09:05→20:38)
[2018-09-22] MEDS: GABAPENTIN 300 MG CAP PO SCH (09:05)
[2018-09-22] MEDS: DULOXETINE 30 MG CAP DR PO SCH ×2 (09:06→20:38)
[2018-09-22] MEDS: NICOTINE (7 MG/24 HR) PATCH TRANSDERM SCH (09:06)
[2018-09-22] MEDS: DOCUSATE SODIUM 100 MG CAP PO SCH ×2 (09:06→20:38)
[2018-09-22 15:58] VITALS: BP 115/55; PULSE 92; RESP 18
[2018-09-22] MEDS: KETOROLAC 30 MG INJ IV PRN (17:20)
[2018-09-22] MEDS: GABAPENTIN 400 MG CAP PO SCH (20:38)
[2018-09-22] MEDS: AMITRIPTYLINE 50 MG TAB PO SCH (20:38)
[2018-09-22 20:40] VITALS: BP 99/56; PULSE 89; RESP 18
[2018-09-23] MEDS: PANTOPRAZOLE (EC) 40 MG TAB PO SCH (05:27)
[2018-09-23] MEDS: oxyCODONE 5 MG TAB PO PRN ×3 (05:34→19:26)
[2018-09-23] MEDS: HYDROmorphONE 1 MG/ML SYG IV PRN (07:26)
--- NOTE | 2018-09-23 08:07 | PN ---
Date/Time of Note Date/Time of Note DATE: 09/23/18 TIME: 08:06 Assessment/Plan VTE Prophylaxis VTE Prophylaxis Intervention: ambulation, SCD's, other (Aspirin 81 mg) Lines/Catheters IV Catheter Type (from Nrsg): Saline Lock Assessment/Plan Assessment/Plan -Pain Meds as needed -Dressing is clean and intact. -OOB with PT -ASA/SCDs for DVT Prophylaxis -Continue monitoring with Internal Medicine -Patient Stable -Acute rehab consult warranted given minimal functionality although low performance highly due to pain complaints Subjective 24 Hr Interval Summary 58-year-old female postop day 2 status post right total knee arthroplasty. Pain has improved from yesterday but continues to be moderate to severe. Patient had physical therapy with minimal activity secondary to pain. Denies any fever, chills or malaise. Denies any chest pain/tightness or shortness of breath. Currently resting in bed comfortably but states that she is having moderate pain. Pain Control: moderate Exam/Review of Systems Vital Signs Vitals Vital Signs Date Temp Pulse Resp B/P (MAP) Pulse Ox O2 O2 Flow FiO2 Time Delivery Rate 09/22/18 98.6 89 18 99/56 (70) 96 20:40 09/22/18 Nasal 2.0 15:58 Cannula Intake and Output 09/22/18 09/22/18 09/23/18 1515:00 23:00 07:00 IntakeIntake Total 720 ml 1020 ml 240 ml BalanceBalance 720 ml 1020 ml 240 ml Exam Free Text/Dictation -No complications with dressing intact. -4/5 Tibialis Anterior, EHL Gastrocnemius/Soleus and Peroneals -Normal Sensation -Palpable DP/PT, Capillary Refill <2 secs -No Distal Edema -Negative Edyta Sign/No calf pain -Toes Freely Movable Constitutional: alert, oriented, well developed Results Result Diagram: 09/23/18 0439 09/23/18 0439 STELLA CLINE PA-C Sep 23, 2018 08:07
[2018-09-23 08:32] VITALS: BP 95/49; PULSE 87; RESP 18
[2018-09-23] MEDS: DULOXETINE 30 MG CAP DR PO SCH ×2 (09:28→20:48)
[2018-09-23] MEDS: GABAPENTIN 300 MG CAP PO SCH (09:29)
[2018-09-23] MEDS: ASPIRIN (EC) 81 MG TAB PO SCH ×2 (09:29→20:48)
[2018-09-23] MEDS: DOCUSATE SODIUM 100 MG CAP PO SCH ×2 (09:29→20:47)
[2018-09-23] MEDS: CELECOXIB 100 MG CAP PO SCH ×2 (09:29→20:48)
[2018-09-23] MEDS: KETOROLAC 30 MG INJ IV PRN ×2 (09:32→19:23)
[2018-09-23] MEDS: NICOTINE (7 MG/24 HR) PATCH TRANSDERM SCH (09:38)
--- NOTE | 2018-09-23 09:41 | CONS ---
Date/Time of Note Date/Time of Note DATE: 09/23/18 TIME: 09:39 Assessment/Plan Assessment/Plan Hospital Course SUBJECTIVE: Continues to have right knee pain that is delaying her PT sessions. OBJECTIVE: Physical Exam General: Adequately build 58 year-old female lying in bed in no apparent distress. HEENT: Normocephalic, atraumatic. Eyes: Anicteric sclerae, conjunctivae clear. ENT: Nasal septum midline, oral mucosa moist. Neck supple, no JVD noticed. Respiratory: Bilaterally clear breath sounds. No use of accessory muscles of respiration. No adventitious breath sounds. Cardiovascular: S1, S2 heard. Regular rate and rhythm. Abdomen: Soft, nontender, and nondistended. Bowel sounds positive in all 4 quadrants. Genitourinary: Deferred. Extremities: No cyanosis, no clubbing, no edema. Right knee surgical dressing. Neurologic: Cranial nerves II through XII grossly intact. The patient is awake, alert, and oriented. Skin: Normal skin turgor. No skin rashes. Labs & Vitals per chart ASSESSMENT & PLAN 58-year-old female with comorbidities including chronic back pain, right knee osteoarthritis, depression, and nicotine use who underwent a right total knee arthroplasty for right knee osteoarthritis. The patient was admitted to inpatient setting for further treatment and evaluation. 1. Right knee osteoarthritis. -Status post right total knee arthroplasty on 09/21/2018. -Weight bearing of the right lower extremity as per orthopedic surgery. -Continue pain control. -Anti-coagulation as per orthopedic surgery. -Physical therapy and occupational therapy as per orthopedic surgeon. 2. Nicotine use. -Continue the patient on nicotine patch. 3. Depression. -Continue mood stabilizers. 4. Chronic pain. -Continue gabapentin. Diet: Regular diet. CODE STATUS: Full code. Anticoagulation: As per orthopedic surgery. The patient is medically cleared to be discharged once it is OK with orthopedic surgery. Thank you Dr. Ross for allowing us to participate in this patient's care. The patient was seen in collaboration with Dr. Lundberg. Result Diagram: 09/23/18 0439 09/23/18 0439 Results 24hrs Laboratory Tests Test 09/23/18 04:39 White Blood Count 9.0 Red Blood Count 4.05 L Hemoglobin 11.2 L Hematocrit 34.8 L Mean Corpuscular Volume 85.9 Mean Corpuscular Hemoglobin 27.7 L Mean Corpuscular Hemoglobin Concent 32.2 Red Cell Distribution Width 13.5 Platelet Count 177 Mean Platelet Volume 10.6 H Immature Granulocytes % 0.300 Neutrophils % 60.6 Lymphocytes % 22.0 Monocytes % 12.1 H Eosinophils % 4.7 Basophils % 0.3 Nucleated Red Blood Cells % 0.0 Immature Granulocytes # 0.030 Neutrophils # 5.5 Lymphocytes # 2.0 Monocytes # 1.1 H Eosinophils # 0.4 Basophils # 0.0 Nucleated Red Blood Cells # 0.0 Sodium Level 141 Potassium Level 4.3 Chloride Level 104 Carbon Dioxide Level 30 Anion Gap 7 Blood Urea Nitrogen 11 Creatinine 0.59 Est Glomerular Filtrat Rate mL/min > 60 Glucose Level 119 Calcium Level 8.3 L Consultation Date/Type/Reason Admit Date/Time Sep 21, 2018 at 05:19 Initial Consult Date 09/21/18 Type of Consult Medical. Reason for Consultation Medical management. Requesting Provider: SIOBHAN STORY MD Exam/Review of Systems Vital Signs Vitals Vital Signs Date Temp Pulse Resp B/P (MAP) Pulse Ox O2 O2 Flow FiO2 Time Delivery Rate 09/23/18 98.3 87 18 95/49 (64) 97 Nasal 08:32 Cannula 09/22/18 2.0 15:58 Intake and Output 09/22/18 09/22/18 09/23/18 1414:59 22:59 06:59 IntakeIntake Total 720 ml 1020 ml 240 ml BalanceBalance 720 ml 1020 ml 240 ml Medications Medications Current Medications IV Flush (NS 3 ml) 3 ml PER PROTOCOL IV ; Start 09/21/18 at 07:30 Oxycodone HCl (Roxicodone) 15 mg Q4H PRN PO PAIN Last administered on 09/23/18at 09:29; Admin Dose 15 MG; Start 09/21/18 at 07:30 Oxycodone HCl (Roxicodone) 10 mg Q4H PRN PO PAIN Last administered on 09/23/18at 05:34; Admin Dose 10 MG; Start 09/21/18 at 07:30 Oxycodone HCl (Roxicodone) 5 mg Q4H PRN PO PAIN; Start 09/21/18 at 07:30 Ondansetron HCl (Zofran Inj) 4 mg Q4H PRN IV NAUSEA AND/OR VOMITING; Start 09/22/18 at 07:30 Celecoxib (Celebrex) 100 mg BID PO Last administered on 09/23/18at 09:29; Admin Dose 100 MG; Start 09/22/18 at 09:00 Pantoprazole (Protonix Tab) 40 mg DAILY@06 PO Last administered on 09/23/18at 05:27; Admin Dose 40 MG; Start 09/23/18 at 06:00 Docusate Sodium (Colace) 200 mg BID PO Last administered on 09/23/18at 09:29; Admin Dose 200 MG; Start 09/22/18 at 09:00; Stop 09/25/18 at 08:59 Simethicone (Mylicon) 80 mg TID PRN PO DISTENSION/GAS/BLOATING; Start 09/21/18 at 07:30 Senna/Docusate Sodium (Senokot-S) 2 tab BID PRN PO CONSTIPATION; Start 09/21/18 at 07:30 Magnesium Hydroxide (Milk Of Mag) 30 ml HS PRN PO CONSTIPATION; Start 09/21/18 at 07:30 Bisacodyl (Dulcolax Supp) 10 mg DAILY PRN [place] CONSTIPATION; Start 09/21/18 at 07:30 Sodium Biphosphate/ Sodium Phosphate (Fleet Enema) 133 ml DAILY PRN [place] CONSTIPATION; Start 09/21/18 at 07:30 Diphenhydramine HCl (Benadryl) 25 mg Q4H PRN IV ITCHING Last administered on 09/22/18at 02:23; Admin Dose 25 MG; Start 09/21/18 at 07:30 Naloxone HCl (Narcan) 0.2 mg Q2M PRN IV DECREASED REPIRATORY RATE; Start 09/21/18 at 07:30 Bethanechol Chloride (Urecholine) 25 mg URINARY CATH D/C PRN PO UNABLE TO VOID; Start 09/21/18 at 07:30 Aspirin (Halfprin) 81 mg BID PO Last administered on 09/23/18at 09:29; Admin Dose 81 MG; Start 09/22/18 at 09:00 Amitriptyline HCl (Elavil) 50 mg QHS PO Last administered on 09/22/18at 20:38; Admin Dose 50 MG; Start 09/21/18 at 21:00 Duloxetine HCl (Cymbalta) 30 mg QHS PO Last administered on 09/22/18 20:38; Admin Dose 30 MG; Start 09/21/18 at 21:00 Duloxetine HCl (Cymbalta) 60 mg QAM PO Last administered on 09/23/18 09:28; Ad min Dose 60 MG; Start 09/22/18 at 09:00 Gabapentin (Neurontin) 1,200 mg QPM PO Last administered on 09/22/18 20:38; Admin Dose 1,200 MG; Start 09/21/18 at 21:00 Gabapentin (Neurontin) 600 mg QAM PO Last administered on 09/23/18 09:29; Admin Dose 600 MG; Start 09/22/18 at 09:00 Nicotine (Nicoderm 7 Mg/ 24 Hr) 1 patch DAILY TRANSDERM Last administered on 09/22/18 09:06; Admin Dose 1 PATCH; Start 09/21/18 at 15:00 Hydromorphone HCl (Dilaudid) 1 mg Q6H PRN IV BREAKTHROUGH PAIN Last administered on 09/23/18 07:26; Admin Dose 1 MG; Start 09/22/18 at 08:30 Ketorolac Tromethamine (Toradol) 30 mg Q6H PRN IV PAIN LEVEL 1-3 Last administered on 09/23/18 09:32; Admin Dose 30 MG; Start 09/22/18 at 17:30; Stop 09/25/18 at 17:29 LYNSEY CABRALES NP Sep 23, 2018 09:41
[2018-09-23 14:00] VITALS: BP 100/58; PULSE 84; RESP 18
[2018-09-23 19:30] VITALS: BP 115/53; PULSE 82; RESP 18
[2018-09-23] MEDS: AMITRIPTYLINE 50 MG TAB PO SCH (20:48)
[2018-09-23] MEDS: GABAPENTIN 400 MG CAP PO SCH (20:48)
[2018-09-24 01:20] VITALS: BP 95/54; PULSE 78; RESP 18
[2018-09-24] MEDS: PANTOPRAZOLE (EC) 40 MG TAB PO SCH (06:39)
[2018-09-24] MEDS: KETOROLAC 30 MG INJ IV PRN ×2 (06:40→13:41)
[2018-09-24 08:21] VITALS: BP 99/53; PULSE 73; RESP 18
--- NOTE | 2018-09-24 09:35 | CONS ---
Date/Time of Note Date/Time of Note DATE: 09/24/18 TIME: 09:35 Assessment/Plan Assessment/Plan Hospital Course SUBJECTIVE: Right knee pain fairly well controlled. Complains of constipation. OBJECTIVE: Physical Exam General: Adequately build 58 year-old female lying in bed in no apparent distress. HEENT: Normocephalic, atraumatic. Eyes: Anicteric sclerae, conjunctivae clear. ENT: Nasal septum midline, oral mucosa moist. Neck supple, no JVD noticed. Respiratory: Bilaterally clear breath sounds. No use of accessory muscles of respiration. No adventitious breath sounds. Cardiovascular: S1, S2 heard. Regular rate and rhythm. Abdomen: Soft, nontender, and nondistended. Bowel sounds positive in all 4 quadrants. Genitourinary: Deferred. Extremities: No cyanosis, no clubbing, no edema. Right knee surgical dressing. Neurologic: Cranial nerves II through XII grossly intact. The patient is awake, alert, and oriented. Skin: Normal skin turgor. No skin rashes. Labs & Vitals per chart ASSESSMENT & PLAN 58-year-old female with comorbidities including chronic back pain, right knee osteoarthritis, depression, and nicotine use who underwent a right total knee arthroplasty for right knee osteoarthritis. The patient was admitted to inpatient setting for further treatment and evaluation. 1. Right knee osteoarthritis. -Status post right total knee arthroplasty on 09/21/2018. -Weight bearing of the right lower extremity as per orthopedic surgery. -Continue pain control. -Anti-coagulation as per orthopedic surgery. -Physical therapy and occupational therapy as per orthopedic surgeon. 2. Nicotine use. -Continue the patient on nicotine patch. 3. Depression. -Continue mood stabilizers. 4. Chronic pain. -Continue gabapentin. 5. Plan. -Replete potassium. -Start MiraLAX. -Single dose of oral Dulcolax. Diet: Regular diet. CODE STATUS: Full code. Anticoagulation: As per orthopedic surgery. The patient is medically cleared to be discharged once it is OK with orthopedic surgery. Thank you Dr. Ross for allowing us to participate in this patient's care. The patient was seen in collaboration with Dr. Lundberg. Result Diagram: 09/24/18 0441 09/24/18 0441 Results 24hrs Laboratory Tests Test 09/24/18 04:41 White Blood Count 6.9 # Red Blood Count 3.59 L Hemoglobin 10.0 L Hematocrit 30.8 L Mean Corpuscular Volume 85.8 Mean Corpuscular Hemoglobin 27.9 L Mean Corpuscular Hemoglobin Concent 32.5 Red Cell Distribution Width 13.3 Platelet Count 182 Mean Platelet Volume 10.8 H Immature Granulocytes % 0.300 Neutrophils % 52.5 Lymphocytes % 28.1 Monocytes % 11.7 H Eosinophils % 7.0 Basophils % 0.4 Nucleated Red Blood Cells % 0.0 Immature Granulocytes # 0.020 Neutrophils # 3.6 Lymphocytes # 1.9 Monocytes # 0.8 Eosinophils # 0.5 Basophils # 0.0 Nucleated Red Blood Cells # 0.0 Sodium Level 139 Potassium Level 3.4 L Chloride Level 107 Carbon Dioxide Level 29 Anion Gap 3 L Blood Urea Nitrogen 14 Creatinine 0.64 Est Glomerular Filtrat Rate mL/min > 60 Glucose Level 135 Calcium Level 8.4 Consultation Date/Type/Reason Admit Date/Time Sep 21, 2018 at 05:19 Initial Consult Date 09/21/18 Type of Consult Medical. Reason for Consultation Medical management. Requesting Provider: SIOBHAN STORY MD Exam/Review of Systems Vital Signs Vitals Vital Signs Date Temp Pulse Resp B/P (MAP) Pulse Ox O2 O2 Flow FiO2 Time Delivery Rate 09/24/18 97.9 73 18 99/53 (68) 96 Nasal 08:21 Cannula 09/24/18 2.0 01:20 Intake and Output 09/23/18 09/23/18 09/24/18 1515:00 23:00 07:00 IntakeIntake Total 300 ml 600 ml BalanceBalance 300 ml 600 ml Medications Medications Current Medications IV Flush (NS 3 ml) 3 ml PER PROTOCOL IV ; Start 09/21/18 at 07:30 Oxycodone HCl (Roxicodone) 15 mg Q4H PRN PO PAIN Last administered on 09/23/18at 19:26; Admin Dose 15 MG; Start 09/21/18 at 07:30 Oxycodone HCl (Roxicodone) 10 mg Q4H PRN PO PAIN Last administered on 09/23/18at 05:34; Admin Dose 10 MG; Start 09/21/18 at 07:30 Oxycodone HCl (Roxicodone) 5 mg Q4H PRN PO PAIN; Start 09/21/18 at 07:30 Ondansetron HCl (Zofran Inj) 4 mg Q4H PRN IV NAUSEA AND/OR VOMITING; Start 09/22/18 at 07:30 Celecoxib (Celebrex) 100 mg BID PO Last administered on 09/23/18 20:48; Admin Dose 100 MG; Start 09/22/18 at 09:00 Pantoprazole (Protonix Tab) 40 mg DAILY@06 PO Last administered on 09/24/18 06:39; Admin Dose 40 MG; Start 09/23/18 at 06:00 Docusate Sodium (Colace) 200 mg BID PO Last administered on 09/23/18 20:47; Admin Dose 200 MG; Start 09/22/18 at 09:00; Stop 09/25/18 at 08:59 Simethicone (Mylicon) 80 mg TID PRN PO DISTENSION/GAS/BLOATING; Start 09/21/18 at 07:30 Senna/Docusate Sodium (Senokot-S) 2 tab BID PRN PO CONSTIPATION Last administered on 09/23/18 21:01; Admin Dose 2 TAB; Start 09/21/18 at 07:30 Magnesium Hydroxide (Milk Of Mag) 30 ml HS PRN PO CONSTIPATION; Start 09/21/18 at 07:30 Bisacodyl (Dulcolax Supp) 10 mg DAILY PRN [place] CONSTIPATION; Start 09/21/18 at 07:30 Sodium Biphosphate/ Sodium Phosphate (Fleet Enema) 133 ml DAILY PRN [place] CONSTIPATION; Start 09/21/18 at 07:30 Diphenhydramine HCl (Benadryl) 25 mg Q4H PRN IV ITCHING Last administered on 09/22/18at 02:23; Admin Dose 25 MG; Start 09/21/18 at 07:30 Naloxone HCl (Narcan) 0.2 mg Q2M PRN IV DECREASED REPIRATORY RATE; Start 09/21/18 at 07:30 Bethanechol Chloride (Urecholine) 25 mg URINARY CATH D/C PRN PO UNABLE TO VOID; Start 09/21/18 at 07:30 Aspirin (Halfprin) 81 mg BID PO Last administered on 09/23/18 20:48; Admin Dose 81 MG; Start 09/22/18 at 09:00 Amitriptyline HCl (Elavil) 50 mg QHS PO Last administered on 1/11/19at 20:48; Admin Dose 50 MG; Start 09/21/18 at 21:00 Duloxetine HCl (Cymbalta) 30 mg QHS PO Last administered on 09/23/18 20:48; A dmin Dose 30 MG; Start 09/21/18 at 21:00 Duloxetine HCl (Cymbalta) 60 mg QAM PO Last administered on 09/23/18 09:28; Admin Dose 60 MG; Start 09/22/18 at 09:00 Gabapentin (Neurontin) 1,200 mg QPM PO Last administered on 09/23/18 20:48; Admin Dose 1,200 MG; Start 09/21/18 at 21:00 Gabapentin (Neurontin) 600 mg QAM PO Last administered on 09/23/18 09:29; Admin Dose 600 MG; Start 09/22/18 at 09:00 Nicotine (Nicoderm 7 Mg/ 24 Hr) 1 patch DAILY TRANSDERM Last administered on 09/23/18 09:38; Admin Dose 1 PATCH; Start 09/21/18 at 15:00 Hydromorphone HCl (Dilaudid) 1 mg Q6H PRN IV BREAKTHROUGH PAIN Last administered on 09/23/18 07:26; Admin Dose 1 MG; Start 09/22/18 at 08:30 Ketorolac Tromethamine (Toradol) 30 mg Q6H PRN IV PAIN LEVEL 1-3 Last administered on 09/24/18 06:40; Admin Dose 30 MG; Start 09/22/18 at 17:30; Stop 09/25/18 at 17:29 LYNSEY CABRALES NP Sep 24, 2018 09:35
[2018-09-24] MEDS: NICOTINE (7 MG/24 HR) PATCH TRANSDERM SCH (09:56)
[2018-09-24] MEDS: GABAPENTIN 300 MG CAP PO SCH (09:56)
[2018-09-24] MEDS: ASPIRIN (EC) 81 MG TAB PO SCH (09:56)
[2018-09-24] MEDS: DOCUSATE SODIUM 100 MG CAP PO SCH (09:56)
[2018-09-24] MEDS: DULOXETINE 30 MG CAP DR PO SCH (09:56)
[2018-09-24] MEDS: CELECOXIB 100 MG CAP PO SCH (09:56)
[2018-09-24] MEDS ORDERED: BISACODYL (EC) 5 MG TAB PO ONE (10:00)
[2018-09-24] MEDS ORDERED: POLYETHYLENE GLYCOL 17 GM PACKET PO SCH (10:00)
[2018-09-24] MEDS ORDERED: POTASSIUM CHLORIDE (SR) 10 MEQ TAB PO ONE (10:00)
[2018-09-24] MEDS: oxyCODONE 5 MG TAB PO PRN (12:04)
--- NOTE | 2018-09-26 09:21 | DS ---
Date/Time of Note Date/Time of Note DATE: 09/26/18 TIME: 09:20 Discharge Summary Admission/Discharge Info Admit Date/Time Sep 21, 2018 at 05:19 Discharge Date/Time Sep 24, 2018 at 17:03 Discharge Diagnosis Status post right total knee arthroplasty Patient Condition: Good Hospital Course On the day of admission, the patient underwent Right total knee arthroplasty Intraoperative complications: None Postoperative complications: None The patient was given prophylactic antibiotics and anticoagulants. On the day of surgery and first postoperative day patient was started on gait training and was taught usual restrictions following Knee replacement On postoperative day 1 dressing was clean dry and intact. No complications were observed. On the day of discharge, the wound was clean and healing well; there was no sign of infection. Wound care instructions were discussed with the patient. Discharge Temperature:97.9 degrees Discharge White Blood Cell Count: 6.9 Discharge Hemoglobin:10 The patient was discharged home with home health. Arrangements were made for visiting nurses and home health/physical therapy. The patient will be seen in office at scheduled postoperative evaluation date given on their preoperative exam. Should patient complain of any problems prior to scheduled postoperative evaluation date, they may call into outpatient clinic to determine if they need to be scheduled at sooner appointment to be seen immediately if needed. Discharge medications: As per medication reconciliation form Diet: Same as preadmission diet. This is Stella Hudson PA-C dictating discharge summary for Dr. Kimberly Ross. Home Meds Reported Medications Duloxetine Hcl* (Duloxetine Hcl*) 60 Mg Capsule., 60 MG PO QAM, #30 CAP 09/21/18 Duloxetine Hcl* (Duloxetine Hcl*) 30 Mg Capsule., 30 MG PO QHS, #30 CAP 09/21/18 Amitriptyline Hcl* (Amitriptyline Hcl*) 50 Mg Tablet, 50 MG PO QHS, #30 TAB 09/21/18 Gabapentin* (Gabapentin*) 600 Mg Tablet, 1200 MG PO QPM, #180 TAB 09/21/18 Gabapentin* (Gabapentin*) 600 Mg Tablet, 600 MG PO QAM, #90 TAB 09/21/18 Discontinued Reported Medications [Paxil] No Conflict Check 06/07/12 Oxycodone Hcl/Acetaminophen (Oxycodone-Apap 5-325 Mg Tab) 1 Tab Tablet, 1 TAB PO Q4 PRN 06/07/12 Ibuprofen* (Ibuprofen*) 600 Mg Tablet, 600 MG PO Q6 PRN 06/07/12 [Hormone Med.] No Conflict Check 12/30/10 Gabapentin* (Gabapentin*) 100 Mg Capsule 12/30/10 Follow-up Plan Follow-up at postoperative appointment provided to you at your preoperative exam Primary Care Provider Not On Staff Doctor STELLA CLINE PA-C Sep 26, 2018 09:21
[2018-10-19] MEDS ORDERED: IBUP-1542 PO (21:22)
[2018-10-19] MEDS ORDERED: CEPH-443 PO (21:22)
== END 2018-09-24 17:03 | disposition home health service (06) | DRG 470 ==
LOC: REC 05:19 → MS1 10:41
PROVIDERS: ADMIT Orthopaedic Surgery Adult Reconstructive Orthopaedic Surgery; ATTEND Orthopaedic Surgery Adult Reconstructive Orthopaedic Surgery
PROC: 0SRC069 Replacement of Right Knee Joint with Oxidized Zirconium on Polyethylene Synthetic Substitute, Cemented, Open Approach (ICD-10-PCS; principal; 2018-09-21 07:30)
DX: M17.11 Unilateral primary osteoarthritis, right knee (principal); F17.200 Nicotine dependence, unspecified, uncomplicated; G89.29 Other chronic pain; F32.9 Major depressive disorder, single episode, unspecified
CPT/HCPCS: 73560; 80048; 83735; 85025; 88304; 88311; 97110; 97116; 97161; 97167; 97530; 97535; C1713; C1776; J0171; J0690; J0697; J0735; J1100; J1170; J1200; J1885; J2175; J2250; J2274; J2405; J2765; J2795; J3010; J7030

== ENCOUNTER → 2018-10-04 | Outpatient (CLI) | payer OTHER ==
[~2018-10-04] MED LIST changes: +AMIT50TA3 PO; +CEPH-443 PO; +DULO30CA47 PO; +DULO60CA59 PO; +GABA-526 PO; -GABA100C14; -HORMONE MED; -OXYC-117 PO; -PAXIL
--- NOTE | 2018-10-04 15:36 | RADRPT ---
PROCEDURE: Right knee radiographs. CLINICAL INDICATION: Right knee pain. Postop. TECHNIQUE: Three views. Weight bearing. Frontal, lateral, and patellar view. COMPARISON: September 21, 2018. FINDINGS: There is no fracture or dislocation. The soft tissues are normal. There is a total right knee arthroplasty which appears satisfactory. There is no lytic or blastic lesion. IMPRESSION: 1. Satisfactory postoperative appearance of the right knee. 2. No change from September 21, 2018. RPTAT: QQ .Dylon Abreu MD, MD Date Time Electronically viewed and signed by .Dylon Abreu MD, on 10/04/2018 15:36 .R/
--- NOTE | 2018-10-04 19:00 | HKNOTE ---
DATE OF SERVICE: 10/04/2018 CHIEF COMPLAINT: Followup. HISTORY OF PRESENT ILLNESS: The soleus returned today for a 2-week evaluation. She underwent a righ t total knee arthroplasty on 09/21/2018. She is using a walker for ambulation. She is taking aspiri n twice daily for DVT prophylaxis. She has home health. She is taking [place] and tramadol for pain c ontrol. RIGHT KNEE EXAMINATION: A healed midline incision. No drainage. 0 to 90 degrees range of motion, s table to varus valgus stress. A 5/5 function of quadriceps, tibialis anterior, gastric soleus. X-RAYS RIGHT KNEE: Three views of the right knee demonstrate that the prosthesis is in acceptable al ignment. No fractures, dislocations or loosening. IMPRESSION: A 58-year-old female status post right total knee arthroplasty on 09/21/2018. PLAN: She will continue her aspirin therapy for an additional 4 weeks. We will request authorizatio n for outpatient physical therapy. The patient requested additional narcotics after performing a CUR ES. I explained to the patient that I am unable to provide her narcotics, and she had recent tramado l and [place] prescriptions. She will follow up in 6 weeks. Dictated By: SIOBHAN HDZ/LISA Conf#: [id number] DID#: [id number]
== END | disposition home or self-care (01) ==
LOC: HKI 14:56
PROVIDERS: ATTEND Orthopaedic Surgery Adult Reconstructive Orthopaedic Surgery
DX: Z09 Encounter for follow-up examination after completed treatment for conditions other than malignant neoplasm (principal); Z96.651 Presence of right artificial knee joint

== ENCOUNTER → 2018-10-25 | Outpatient (CLI) | payer OTHER ==
--- NOTE | 2018-10-25 16:23 | HKNOTE ---
DATE OF SERVICE: HISTORY OF PRESENT ILLNESS: Ms. Cameron is 4 weeks' status post right total knee arthroplasty. She delgado d surgery on 09/21/2018. She is complaining of pain in the right knee. She is using a walker for am bulation. She is taking aspirin twice daily for DVT prophylaxis. She denies any chest pain, shortne ss of breath. She is on chronic pain medications including narcotics. She has not seen a pain manag ement doctor recently. PHYSICAL EXAMINATION: GAIT: Antalgic gait, reciprocal gait pattern. RIGHT KNEE: Healed incision. No drainage, no signs of infection. A 0 to 100 degrees range of motio n, stable to varus valgus stress, 5/5 function of quadriceps, tibialis anterior, gastroc soleus. IMAGING: X-rays of right knee: X-rays of the right knee demonstrate that the implant is in acceptab le alignment. No fractures, dislocations or loosening. IMPRESSION: A 58-year-old female status post right total knee arthroplasty in 09/21/2018. PLAN: We will request a repeat authorization for outpatient physical therapy. We will also request authorization for pain management consultation given her chronic history of narcotics. She will fini sh her remaining aspirin. She will follow up in 3 months. Dictated By: SIOBHAN HDZ/LISA Conf#: [id number] DID#: [id number]
--- NOTE | 2018-10-27 16:18 | RADRPT ---
PROCEDURE: XR Knee. CLINICAL INDICATION: PAIN TECHNIQUE: 3 views of the right knee were obtained. The images reviewed on a PACS workstation. COMPARISON: KNEE 10/04/2018; YOBANY KNEE 05/29/2016 FINDINGS: Right knee total arthroplasty appears intact and properly aligned. No periprosthetic fracture or radi ographic evidence of loosening. Small joint effusion. Diffuse osteopenia. IMPRESSION: Stable appearance of right knee total arthroplasty with small joint effusion. RPTAT:AAJJ Farheen Saldana Physician Date Time Electronically viewed and signed by Farheen Saldana Physician on 10/27/2018 16:18 RF/
== END | disposition home or self-care (01) ==
LOC: HKI 15:31
PROVIDERS: ATTEND Orthopaedic Surgery Adult Reconstructive Orthopaedic Surgery
DX: M25.561 Pain in right knee (principal); Z96.651 Presence of right artificial knee joint

== ENCOUNTER → 2018-12-27 | Outpatient (CLI) | payer OTHER ==
--- NOTE | 2018-12-27 20:31 | HKNOTE ---
DATE OF SERVICE: 12/27/2018 SUBJECTIVE: Rafaela Cameron is 3 months status post right total knee arthroplasty. She states that he r pain has improved. She does not use any assist devices. She has no complaints. RIGHT KNEE EXAMINATION: Healed incision. Neutral alignment. With 0 to 115 degrees range of motion. Stable to varus and valgus stress. A 5/5 function of quadriceps, tibialis anterior, gastroc-soleus . X-RAYS RIGHT KNEE: X-rays demonstrate the prosthesis to be in acceptable alignment. No fractures, d islocations or loosening. IMPRESSION: A 58-year-old female status post right total knee arthroplasty on 09/21/2018. PLAN: She can continue to be weightbearing as tolerated. She was instructed on home exercises. She does not require pain medications. She will follow up in 09/2019 for a 1-year followup. She was in structed on antibiotic use prior to dental procedure. Dictated By: SIOBHAN HDZ/LISA Conf#: [id number] DID#: [id number]
--- NOTE | 2018-12-29 11:25 | RADRPT ---
PROCEDURE: XR knee CLINICAL INDICATION: knee pain. TECHNIQUE: Three views of the right knee were obtained. COMPARISON: 10/25/2018 FINDINGS: There is no acute fracture or dislocation. There are stable postsurgical changes of total right knee arthroplasty. Hardware appears intact. There is a small knee joint effusion, unchanged. IMPRESSION: 1. Stable postsurgical changes of total right knee arthroplasty with small knee joint effusion. RPTAT:AAEE Physician Ngoc Date Time Electronically viewed and signed by Physician Ngoc on 12/29/2018 11:25 RM/
== END | disposition home or self-care (01) ==
LOC: HKI 14:49
PROVIDERS: ATTEND Orthopaedic Surgery Adult Reconstructive Orthopaedic Surgery
DX: Z47.1 Aftercare following joint replacement surgery (principal); Z96.651 Presence of right artificial knee joint
CPT/HCPCS: 73562; Z7500; G0463